=== PATIENT | female | born 1970 | race Caucasian/White ===

== ENCOUNTER 2019-02-17 16:23 | Emergency (ER) | payer OTHER ==
--- NOTE | 2019-02-17 16:26 | ER Report ---
History and Physical Time Seen By MD: 16:26 HPI/ROS CHIEF COMPLAINT: ankle/foot injury HISTORY OF PRESENT ILLNESS: Pt stepped off a step wrong and inverted his right ankle. Pt felt and heard a pop. Pt had immediate pain at lateral ankle that radiates across the top of her foot and up her mid dietz. Pt denies numbness. Pt denies knee pain. Pt did not take any medication for pain REVIEW OF SYSTEMS: Constitutional: No fever, no chills. Eyes: No discharge. ENT: No sore throat. Cardiovascular: No chest pain, no palpitations. Respiratory: No cough, no shortness of breath. Gastrointestinal: No abdominal pain, no vomiting. Genitourinary: No hematuria. Musculoskeletal: + r ankle and foot pain Skin: No rashes. Neurological: no parathesias Allergies: Coded Allergies: No Known Drug Allergies (Unverified , 02/17/19) Home Meds Reported Medications Spironolactone (SPIRONOLACTONE) 25 Mg Tablet, 100 MG PO DAILY for skin, TAB 02/17/19 Bupropion Hcl (WELLBUTRIN XL) 150 Mg Tab.er.24h, 150 MG PO QDAY, TAB 02/17/19 Lisinopril (LISINOPRIL) 10 Mg Tablet, 10 MG PO QDAY, TAB 02/17/19 Past Medical/Surgical History Pmhx: htn Reviewed Nurses Notes: Yes Hx Smoking: No Hx Alcohol Use: No Constitutional Vital Sign - Last 24 Hours 02/17/19 02/17/19 02/17/19 02/17/19 16:28 16:30 16:33 16:38 Temp 98.4 Pulse 96 98 92 B/P (MAP) 134/77 134/77 (96) Pulse Ox 92 89 89 O2 Delivery Room Air 02/17/19 02/17/19 02/17/19 02/17/19 16:43 16:48 16:53 16:58 Pulse 92 89 86 Pulse Ox 91 88 91 92 02/17/19 02/17/19 17:13 17:18 Pulse 86 93 Pulse Ox 91 90 Physical Exam General appearance: alert no distress Right ankle: There is mild swelling from lateral maleolus to front of talus. There is no obvious deformity to the ankle. There is moderate tenderness to the lateral malleolus. Ankle joint is stable and there is no tenderness over the achilles tendon. The foot mild tenderness on right 5th metatasal without swelling. Knee: no laxity or fibular head tenderness Neurologic exam: The patient has normal sensation distal to the injury. Vascular exam: Normal pulses and capillary refill in the foot DIFFERENTIAL DIAGNOSIS: After history and physical exam differential diagnosis was considered for ankle injury including sprain, fracture, dislocation and soft tissue injury. Medical Decision Making EKG/Imaging Imaging no acute fx evident ED Course/Re-evaluation ED Course xray 02/17/2019 5:37:46 pm Pts images do not show bony injury.will place in aircast and crutches in case of ligament/tendon injury . Pt is from [place]. will copy films for pt to take home. Told to follow up with orthopedics if not improving. Decision to Disposition Date: February 17, 2019 Decision to Disposition Time: 17:38 Depart Departure Latest Vital Signs Vital Signs Date Time Temp Pulse Resp B/P (MAP) Pulse Ox O2 Delivery O2 Flow Rate FiO2 02/17/19 17:18 93 90 02/17/19 16:30 134/77 (96) 02/17/19 16:28 98.4 Room Air Impression: Primary Impression: UNSPECIFIED INJURY OF RIGHT ANKLE, SEQUELA Condition: Improved Disposition: HOME OR SELF-CARE Patient Instructions: Ankle Sprain (ED) Additional Instructions: Your xrays today did not a bone injury. This does not mean you did not injure a ligament or tendon. Use your crutches and splint. Follow up with orthopedics if not improving when home. Ice, elevate and rest. Motrin (advil, ibuprofen) 600mg every 6 hours as needed for pain. Hydrocodone with tylenol (vicodin) one every 4-6 hours as needed for pain. You may take this with motrin. MILES CHAKRABORTY DO February 17, 2019 16:26
[2019-02-17 16:30] VITALS: BP 134/77
[2019-02-17] MEDS ORDERED: APAP/HYDROCODONE 325/5 TAB PO ONE (16:35)
[2019-02-17] MEDS ORDERED: SPIR25TA80 PO (16:42)
[2019-02-17] MEDS ORDERED: BUPR-472 PO (16:42)
[2019-02-17] MEDS ORDERED: LISI-362 PO (16:42)
--- NOTE | 2019-02-17 17:31 | RADIOLOGY IMAGING REPORT ---
FACILITY: [facility] PATIENT NAME: Ju Gorman : 1970 MR: [id number] V: [id number] EXAM DATE: ORDERING PHYSICIAN: MILES CHAKRABORTY TECHNOLOGIST: Location: [facility] Patient: Ju oGrman : 1970 Visit/Account:[id number] Date of Sevice: 02/17/2019 3 views right ankle and foot INDICATION: Pain after rolling ankle COMPARISON: None Available FINDINGS: No evidence of fracture, dislocation, or acute osseous abnormality of the right ankle and foot. The ankle mortise is symmetric. There is no significant ankle joint effusion. There is no focal soft tissue abnormality. No evidence of radiopaque foreign body. IMPRESSION: 1. No acute osseous abnormality of the right ankle and foot Report Dictated By: Eric Alvarado at 02/17/2019 5:27 PM Report E-Signed By: Eric Alvarado at 02/17/2019 5:28 PM WSN:[email or web address]
--- NOTE | 2019-02-17 17:32 | RADIOLOGY IMAGING REPORT ---
FACILITY: [facility] PATIENT NAME: Ju Gorman : 1970 MR: [id number] V: [id number] EXAM DATE: ORDERING PHYSICIAN: MILES CHAKRABORTY TECHNOLOGIST: Location: [facility] Patient: Ju Gorman : 1970 Visit/Account:[id number] Date of Sevice: 02/17/2019 3 views right ankle and foot INDICATION: Pain after rolling ankle COMPARISON: None Available FINDINGS: No evidence of fracture, dislocation, or acute osseous abnormality of the right ankle and foot. The ankle mortise is symmetric. There is no significant ankle joint effusion. There is no focal soft tissue abnormality. No evidence of radiopaque foreign body. IMPRESSION: 1. No acute osseous abnormality of the right ankle and foot Report Dictated By: Eric Alvarado at 02/17/2019 5:27 PM Report E-Signed By: Eric Alvarado at 02/17/2019 5:28 PM WSN:[email or web address]
[2019-02-17] MEDS ORDERED: LOR5/325 PO (17:41)
== END 2019-02-17 18:05 | disposition home or self-care (01) ==
LOC: ER 16:27
DX: M25.571 Pain in right ankle and joints of right foot (principal)
CPT/HCPCS: 73610; 73630; 99284; L1930